=== PATIENT | female | born 1950 | race Caucasian/White ===

== ENCOUNTER → 2023-12-20 12:24 | Outpatient (REF) | payer MEDICARE, SELFPAY ==
[2023-12-21 12:48] LABS: Urine Albumin Trace (Neg - Trace); Urine Bilirubin Negative (Negative); Urine Character Clear (Clear); Urine Color Yellow; Urine Glucose Negative (Negative); Urine Ketone Negative (Negative); Urine Leukocyte 1+ (Negative); Urine Nitrite Positive (Negative); Urine Occult Blood Trace (Negative); Urine Urobilinogen Negative (Neg - 1+)
[2023-12-21 13:09] LABS: Urine Squamous Cell 0-2 /LPF (Few)
[2023-12-21 13:11] LABS: Urine White Cell 30-40 /HPF (0-5)
[2023-12-21 13:12] LABS: Urine Bacteria Many (Negative)
== END ==
LOC: OLABSOL 12:24
PROVIDERS: ATTENDING PHYSICIAN Hospitalist
DX: N39.0 Urinary tract infection, site not specified (principal)
CPT/HCPCS: 36415; 81003; 81015; 87077; 87086; 87186

== ENCOUNTER → 2024-01-07 12:55 | Outpatient (REF) | payer MEDICARE, SELFPAY ==
[2024-01-07 13:57] LABS: Urine Albumin Negative (Neg - Trace); Urine Bilirubin Negative (Negative); Urine Character Slightly Cloudy (Clear); Urine Color Yellow; Urine Glucose Negative (Negative); Urine Ketone Negative (Negative); Urine Leukocyte 2+ (Negative); Urine Nitrite Positive (Negative); Urine Occult Blood Negative (Negative); Urine Specific Gravity 1.015 (<1.030); Urine Urobilinogen Negative (Neg - 1+)
[2024-01-07 14:21] LABS: Urine Amorphous Seen; Urine Mucus Few
[2024-01-07 14:23] LABS: Urine Bacteria Many (Negative); Urine Red Blood Cell 0-2 /HPF (0-2); Urine White Cell 90-100 /HPF (0-5)
== END ==
LOC: OLABSOL 12:55
PROVIDERS: ATTENDING PHYSICIAN Hospitalist
DX: N39.0 Urinary tract infection, site not specified (principal)
CPT/HCPCS: 81003; 81015; 87077; 87086; 87186

== ENCOUNTER 2024-01-14 12:23 | Emergency (ER) | payer MEDICARE, SELFPAY ==
[2024-01-14 12:25] VITALS: BP 108/66
--- NOTE | 2024-01-14 14:15 | ED.GENMED ---
History of Present Illness
General
Chief Complaint: Fall
Source: patient
Exam Limitations: none
Time Seen by Provider: 01/14/24 12:44
Nursing documentation reviewed up to this point in time: agreed with
Travel History
Have you had any contact with someone who has COVID-19?: No
Do you have any symptoms of coronavirus? Fever > 100 degrees, chills, cough, shortness of breath, sore throat, loss of taste or smell, muscle aches, or headache?: No
History of Present Illness
History of Present Illness:
73-year-old female with past medical history of hypertension hyperlipidemia COPD anxiety depression presenting to the emergency department today when she leaned too far when she claims that she fell hit her forearm but denies hitting her head or
neck no discomfort other than her forearm she lives that the discomfort is very minimal to the right arm. Not on blood thinners.
Past History
Past History
ED Past Medical History: COPD, GERD, NIDDM and Other (neurogenic bladder)
ED Past Surgical History: Other
Social History
Tobacco: Smoker
Alcohol: None
Drug: None
Personal:
Living: alone
Employment: Employed
Family History
Family History: Other (No history of neurologic issues)
Review of Systems
Review of Systems
Allergies reviewed?: Yes
All Other Systems: ROS reviewed and negative except as documented in HPI and ROS
Phy Exam
Physical Exam
Physical Exam:
GENERAL: Alert , in no apparent distress
EYE: pupils equal and reactive
NECK: Supple, no significant adenopathy.
ENT: o/p clr, mmm.
CARDIAC: Regular rate and rhythm .
LUNGS: Clear breath sounds bilaterally, no acute respiratory distress, no wheezes/rales/rhonchi
ABDOMEN: Soft, without focal tenderness, no r/g, no cvat
NEUROLOGICAL: Alert and oriented, no focal neuro deficits
SKIN: Laceration to the right forearm on the posterior aspects 3 cm in length. This subcutaneous in depth warm and dry, skin intact.
MUSCULOSKELETAL: No edema, well perfused.
PSYCH: Normal and appropriate interaction.
Course
Vital Signs
Initial and Last Documented VS:
Initial Vital Signs
Temp Pulse Resp BP Pulse Ox
98.2 F 85 20 108/66 93
01/14/24 12:25 01/14/24 12:25 01/14/24 12:25 01/14/24 12:25 01/14/24 12:25
Last Documented Vital Signs
Temp Pulse Resp BP Pulse Ox
98.2 F 85 20 108/66 93
01/14/24 12:25 01/14/24 12:25 01/14/24 12:01/14/24 12:25 01/14/24 12:25
Procedures
Laceration Closure
Right Middle Posterior Distal Arm:
Status of Wound: clean
Size of Wound in cm: 3
Description of Wound Edges: sharp
Preparation: cleaned with saline
Anesthesia: 1% Lidocaine with epi
Revision/Debridement: routine- no revision and irrigate-direct pressure
Wound exploration: explored to base- no FB and no tendon involvement
Type of Closure: single layer closure
Skin Closure Material: 4-0 chromic gut
Number of sutures: 6
MDM/Problems Addressed
MDM/Problems Addressed:
73-year-old female presenting to the emergency department with a laceration to her right forearm after a fall did not sustain any additional injuries this was witnessed. Not on blood thinners. Area was cleaned thoroughly and sutured no bony
tenderness normal neurologic evaluation stable for discharge at this time she was offered a tetanus shot but refused. Return precautions given.
*Critical Care Note
Total Time (30-74mins, 75-104mins- exclusive of procedures): Not Applicable
ED Attending Note
-
Portions of this chart may have been created with voice recognition software.� Occasional wrong word or��sound alike� substitutions may have occurred due to the inherent limitations of voice recognition software.
Discharge Plan
Departure
Patient Disposition: Home (Routine Discharge)
Date of Disposition: 01/14/24
Time of Disposition: 14:18
Patient with high blood pressure during this ER visit?: No
Condition: Good
Covid-19: Not Applicable
Discharge Problem:
Forearm laceration
Instructions: Laceration Repair With Stitches (DC)
Prescriptions:
No Action
atorvastatin 80 mg Tablet
80 mg PO HS
repaglinide 2 mg Tablet
2 mg PO AC
sertraline 100 mg Tablet
150 mg PO HS
melatonin 3 mg Tablet
3 mg PO HS
potassium chloride 20 mEq Tablet,Er Particles/Crystals
20 meq PO DAILY
pantoprazole 40 mg Tablet,Delayed Release (Dr/Ec)
40 mg PO DAILY
ferrous sulfate 325 mg (65 mg iron) Tablet
325 mg PO DAILY
gabapentin 100 mg Capsule
400 mg PO TID
docusate sodium 100 mg Tablet
100 mg PO BID
lacosamide 50 mg Tablet
50 mg PO Q12H
magnesium oxide 400 mg magnesium Tablet
400 mg PO BID
quetiapine 25 mg Tablet
25 mg PO BID
repaglinide 0.5 mg Tablet
0.5 mg PO MUST ENTER TIMES
Rx Instructions:
every other day
ketoconazole 2 % Cream
1 applic TOPICAL BID
Januvia 100 mg Tablet
100 mg PO DAILY
acetaminophen [Pain Reliever ES(acetaminophn)] 500 mg tablet
1,000 mg PO TID@0700,1300,2000 PRN (Reason: pain)
Referrals:
NONE,* [Family Provider] -
Activity Restrictions/Additional Instructions:
You came to the emergency department today with concerns of a forearm laceration. Please keep the area clean covered. These are absorbable sutures. These should dissolve over the next 2 to 3 weeks. Please start putting ointment on the sutures to
help these dissolve 10 days. Return to the emergency department immediately for any signs of infection redness swelling warmth or any other new or concerning symptoms.
Interventions
Interventions:
*Risk Screen - Suicide Last Done: 01/14/24 12:25
*General Assessment Last Done: 01/14/24 12:25
*Neglect/Abuse Screening Last Done: 01/14/24 12:25
ED-Musculoskeletal Assessment Last Done: 01/14/24 13:21
ED- Neurological Assessment Last Done: 01/14/24 13:21
ED-Skin Assessment Last Done: 01/14/24 13:21
== END 2024-01-14 15:20 | disposition home or self-care (01) ==
LOC: EMR 12:23
PROVIDERS: EMERGENCY PHYSICIAN Emergency Medicine
DX: S51.811A Laceration without foreign body of right forearm, initial encounter (principal); W19.XXXA Unspecified fall, initial encounter; I10 Essential (primary) hypertension; E78.5 Hyperlipidemia, unspecified; J44.9 Chronic obstructive pulmonary disease, unspecified; F32.A Depression, unspecified; F41.9 Anxiety disorder, unspecified; F17.200 Nicotine dependence, unspecified, uncomplicated
CPT/HCPCS: 99282; 12002

== ENCOUNTER → 2024-02-16 09:30 | Outpatient (REF) | payer MEDICARE, SELFPAY ==
[2024-02-16 10:27] LABS: Hemoglobin 11.4 g/dL (12.0-16.0); Mean Corp Hgb Conc. 31.7 g/dL (33.0-37.0); Mean Corpuscular Hgb 27.8 pg (27.0-31.0); Mean Corpuscular Volume 87.8 fL (81.0-99.0); Mean Platelet Volume 11.2 fL (7.4-10.4); Platelet Count 203 10^3/uL (130-400); Red Cell Dist. Width 13.6 % (11.5-14.5); White Blood Cell Count 7.8 10^3/uL (4.8-10.8)
[2024-02-16 10:45] LABS: ALT (SGPT) 15 U/L (0-35); AST (SGOT) 19 U/L (14-36); Albumin 4.4 g/dl (3.5-5.0); Alkaline Phosphatase 111 U/L (38-126); Blood Urea Nitrogen 31 mg/dl (7-17); Calcium 9.6 mg/dl (8.4-10.2); Carbon Dioxide 24 mmol/L (22-30); Chloride 102 mmol/L (98-107); Glucose 121 mg/dl (70-99); Potassium 4.4 mmol/L (3.5-5.1); Sodium 140 mmol/L (135-145); Total Bilirubin 0.4 mg/dl (0.2-1.3); eGFR > 60.00
== END ==
LOC: OLABSOL 09:30
PROVIDERS: ATTENDING PHYSICIAN Nurse Practitioner Gerontology
DX: D64.9 Anemia, unspecified (principal); R94.4 Abnormal results of kidney function studies
CPT/HCPCS: 36415; 80053; 85027

== ENCOUNTER → 2024-04-12 10:25 | Outpatient (REF) | payer MEDICARE, SELFPAY ==
[2024-04-12 16:38] LABS: Urine Albumin Negative (Neg - Trace); Urine Bilirubin Negative (Negative); Urine Character Slightly Cloudy (Clear); Urine Color Yellow; Urine Glucose Negative (Negative); Urine Ketone Negative (Negative); Urine Leukocyte 1+ (Negative); Urine Nitrite Positive (Negative); Urine Occult Blood Negative (Negative); Urine Urobilinogen Negative (Neg - 1+)
[2024-04-12 17:03] LABS: Urine Bacteria Many (Negative); Urine Red Blood Cell 0-2 /HPF (0-2); Urine White Cell 50-60 /HPF (0-5)
== END ==
LOC: OLABSOL 10:25
PROVIDERS: ATTENDING PHYSICIAN Nurse Practitioner Gerontology
DX: N39.0 Urinary tract infection, site not specified (principal)
CPT/HCPCS: 81003; 81015; 87086

== ENCOUNTER → 2024-05-31 12:30 | Outpatient (REF) | payer MEDICARE, SELFPAY ==
[2024-05-31 12:50] LABS: Urine Albumin 1+ (Neg - Trace); Urine Bilirubin Negative (Negative); Urine Character Slightly Cloudy (Clear); Urine Color Yellow; Urine Glucose Negative (Negative); Urine Ketone Negative (Negative); Urine Leukocyte 2+ (Negative); Urine Nitrite Positive (Negative); Urine Occult Blood Trace (Negative); Urine Urobilinogen Negative (Neg - 1+); Urine pH 6.5 (5.0-9.0)
[2024-05-31 14:30] LABS: Urine Amorphous Seen
[2024-05-31 14:31] LABS: Urine Bacteria Many (Negative); Urine Red Blood Cell 0-2 /HPF (0-2); Urine White Cell 80-90 /HPF (0-5)
== END ==
LOC: OLABSOL 12:30
PROVIDERS: ATTENDING PHYSICIAN Hospitalist
DX: N39.0 Urinary tract infection, site not specified (principal)
CPT/HCPCS: 81003; 81015; 87086

== ENCOUNTER → 2024-06-27 11:00 | Outpatient (REF) | payer MEDICARE, SELFPAY ==
[2024-06-27 18:28] LABS: Urine Albumin Negative (Neg - Trace); Urine Bilirubin Negative (Negative); Urine Character Clear (Clear); Urine Color Yellow; Urine Glucose Negative (Negative); Urine Ketone Negative (Negative); Urine Leukocyte 2+ (Negative); Urine Nitrite Negative (Negative); Urine Occult Blood Trace (Negative); Urine Urobilinogen Negative (Neg - 1+)
[2024-06-27 18:46] LABS: Urine Bacteria Many (Negative); Urine Red Blood Cell 0-2 /HPF (0-2); Urine White Cell 21-25 /HPF (0-5)
== END ==
LOC: CLAB 11:00
PROVIDERS: ATTENDING PHYSICIAN Nurse Practitioner Gerontology
DX: N39.0 Urinary tract infection, site not specified (principal)
CPT/HCPCS: 36415; 81003; 81015; 87086

== ENCOUNTER → 2024-07-25 09:00 | Outpatient (REF) | payer MEDICARE, SELFPAY ==
[2024-07-26 12:31] LABS: Urine Albumin Negative (Neg - Trace); Urine Bilirubin Negative (Negative); Urine Character Slightly Cloudy (Clear); Urine Color Yellow; Urine Glucose Negative (Negative); Urine Ketone Negative (Negative); Urine Leukocyte 1+ (Negative); Urine Nitrite Negative (Negative); Urine Occult Blood Negative (Negative); Urine Specific Gravity 1.015 (<1.030); Urine Urobilinogen Negative (Neg - 1+)
[2024-07-26 12:53] LABS: Urine Bacteria Many (Negative); Urine Urothelial Cell 0-2 /LPF (FEW)
== END ==
LOC: OLABSOL 09:00
PROVIDERS: ATTENDING PHYSICIAN Hospitalist
DX: N39.0 Urinary tract infection, site not specified (principal)
CPT/HCPCS: 36415; 81003; 81015; 87086

== ENCOUNTER → 2024-09-05 09:25 | Outpatient (REF) | payer MEDICARE, SELFPAY ==
[2024-09-06 14:36] LABS: Urine Albumin Trace (Neg - Trace); Urine Bilirubin Negative (Negative); Urine Character Slightly Cloudy (Clear); Urine Color Yellow; Urine Glucose Negative (Negative); Urine Ketone Negative (Negative); Urine Leukocyte 1+ (Negative); Urine Nitrite Positive (Negative); Urine Occult Blood 2+ (Negative); Urine Urobilinogen Negative (Neg - 1+)
[2024-09-06 14:37] LABS: Urine Bacteria Many (Negative); Urine White Cell 26-30 /HPF (0-5)
== END ==
LOC: OLABSOL 09:25
PROVIDERS: ATTENDING PHYSICIAN Hospitalist
DX: N39.0 Urinary tract infection, site not specified (principal)
CPT/HCPCS: 81003; 81015; 87086

== ENCOUNTER → 2024-09-25 11:00 | Outpatient (REF) | payer MEDICARE, SELFPAY ==
[2024-09-25 17:00] LABS: Urine Albumin Trace (Neg - Trace); Urine Bilirubin Negative (Negative); Urine Character Slightly Cloudy (Clear); Urine Color Yellow; Urine Glucose Negative (Negative); Urine Ketone Negative (Negative); Urine Leukocyte 1+ (Negative); Urine Nitrite Negative (Negative); Urine Occult Blood 1+ (Negative); Urine Urobilinogen Negative (Neg - 1+)
[2024-09-25 17:30] LABS: Urine Squamous Cell 0-2 /LPF (Few)
[2024-09-25 17:31] LABS: Urine Bacteria Many (Negative); Urine White Cell 21-25 /HPF (0-5)
== END ==
LOC: OLABSOL 11:00
DX: N39.0 Urinary tract infection, site not specified (principal)
CPT/HCPCS: 81003; 81015; 87086

== ENCOUNTER 2024-12-26 14:57 | Emergency (ER) | payer MEDICARE, SELFPAY ==
[2024-12-26 15:02] VITALS: BP 122/68
--- NOTE | 2024-12-26 17:12 | ED.GENMED ---
History of Present Illness
General
Chief Complaint: Fall
Time Seen by Provider: 12/26/24 17:09
History of Present Illness
History of Present Illness:
74-year-old female presents to the emergency department via EMS from [facility] after a fall, she was apparently walking to warn her elevating after getting her hair done and she fell. On arrival she has no complaints. Specifically
denies headache or neck pain. She is uncertain if there was a loss of consciousness.
Past History
Past History
ED Past Medical History: COPD, GERD, NIDDM and Other (neurogenic bladder)
ED Past Surgical History: Other
Social History
Tobacco: Smoker
Alcohol: None
Drug: None
Personal:
Living: alone
Employment: Employed
Family History
Family History: Other (No history of neurologic issues)
Review of Systems
Review of Systems
Allergies reviewed?: Yes
All Other Systems: ROS reviewed and negative except as documented in HPI and ROS
Phy Exam
Physical Exam
Physical Exam:
GEN: Well appearing, NAD, WDWN
HEENT: Normocephalic and atraumatic, no cephalohematoma, no midline cervical spine tenderness,Oral mucosa moist, no scleral icterus, no nasal congestion
Cardiac: Regular rate
Lung: No respiratory distress, no tachypnea
MSK: No gross deformity or injuries
Skin: Good color, no pallor or jaundice, no rashes
Neuro: AO x2; CN II-XII grossly intact. BUE strength 5/5 in all grier, sensation intact and symmetric. BLE strength 5/5 in all grier, sensation intact and symmetric
Psych: Calm, cooperative
Course
Orders/Labs/Results
Orders:
Orders
12/26/24 15:06
CT Cervical Spine W/o Iv Contr Urgent
Comment:
Reason For Exam: fall
CT Head W/o Iv Contrast Urgent
Comment:
Reason For Exam: fall
Vital Signs
Initial and Last Documented VS:
Initial Vital Signs
Temp Pulse Resp BP Pulse Ox
98.4 F 82 16 122/68 95
12/26/24 15:02 12/26/24 15:02 12/26/24 15:02 12/26/24 15:02 12/26/24 15:02
Last Documented Vital Signs
Temp Pulse Resp BP Pulse Ox
98.4 F 82 16 122/68 95
12/26/24 15:02 12/26/24 15:02 12/26/24 15:02 12/26/24 15:02 12/26/24 15:02
MDM/Problems Addressed
MDM/Problems Addressed:
Imaging reassuring, patient remains pain-free on reassessment. Discharged in stable condition to the care of family
*Critical Care Note
Total Time (30-74mins, 75-104mins- exclusive of procedures): Not Applicable
ED Attending Note
-
Portions of this chart may have been created with voice recognition software.� Occasional wrong word or��sound alike� substitutions may have occurred due to the inherent limitations of voice recognition software.
Discharge Plan
Departure
Patient Disposition: Home (Routine Discharge)
Date of Disposition: 12/26/24
Time of Disposition: 17:12
Patient with high blood pressure during this ER visit?: No
Discharge Problem:
Fall
Instructions: Preventing falls in adults
Prescriptions:
No Action
atorvastatin 80 mg Tablet
80 mg PO HS
repaglinide 2 mg Tablet
2 mg PO AC
sertraline 100 mg Tablet
150 mg PO HS
melatonin 3 mg Tablet
3 mg PO HS
potassium chloride 20 mEq Tablet,Er Particles/Crystals
20 meq PO DAILY
pantoprazole 40 mg Tablet,Delayed Release (Dr/Ec)
40 mg PO DAILY
ferrous sulfate 325 mg (65 mg iron) Tablet
325 mg PO DAILY
gabapentin 100 mg Capsule
400 mg PO TID
docusate sodium 100 mg Tablet
100 mg PO BID
lacosamide 50 mg Tablet
50 mg PO Q12H
magnesium oxide 400 mg magnesium Tablet
400 mg PO BID
quetiapine 25 mg Tablet
25 mg PO BID
repaglinide 0.5 mg Tablet
0.5 mg PO MUST ENTER TIMES
Rx Instructions:
every other day
ketoconazole 2 % Cream
1 applic TOPICAL BID
Januvia 100 mg Tablet
100 mg PO DAILY
acetaminophen [Pain Reliever ES(acetaminophn)] 500 mg tablet
1,000 mg PO TID@0700,1300,2000 PRN (Reason: pain)
Interventions
Interventions:
*Risk Screen - Suicide Last Done: 12/26/24 15:02
*General Assessment Last Done: 12/26/24 15:02
*Neglect/Abuse Screening Last Done: 12/26/24 15:02
*ED COVID-19 Vaccine History Last Done: 12/26/24 15:02
*Nursing Disposition Last Done: 12/26/24 17:30
Discharge Date and Time
Discharge Date/Time: 12/26/24 17:30
Print Language: PASHTO
== END 2024-12-26 17:30 | disposition home or self-care (01) ==
LOC: EMR 14:57
PROVIDERS: EMERGENCY PHYSICIAN Emergency Medicine; FAMILY PHYSICIAN Hospitalist
DX: Z04.3 Encounter for examination and observation following other accident (principal); W19.XXXA Unspecified fall, initial encounter; J44.9 Chronic obstructive pulmonary disease, unspecified; K21.9 Gastro-esophageal reflux disease without esophagitis; E11.9 Type 2 diabetes mellitus without complications; F17.200 Nicotine dependence, unspecified, uncomplicated
CPT/HCPCS: 99284; 70450; 72125

== ENCOUNTER → 2025-02-20 11:30 | Outpatient (REF) | payer MEDICARE, SELFPAY ==
[2025-02-20 18:37] LABS: Urine Albumin Negative (Neg - Trace); Urine Bilirubin Negative (Negative); Urine Character Cloudy (Clear); Urine Color Yellow; Urine Glucose Negative (Negative); Urine Ketone Negative (Negative); Urine Leukocyte 1+ (Negative); Urine Nitrite Negative (Negative); Urine Occult Blood Negative (Negative); Urine Urobilinogen Negative (Neg - 1+)
[2025-02-20 19:32] LABS: Urine Bacteria Many (Negative); Urine Red Blood Cell 0-2 /HPF (0-2); Urine White Cell 21-25 /HPF (0-5)
== END ==
LOC: OLABSOL 11:30
PROVIDERS: ATTENDING PHYSICIAN Hospitalist
DX: N39.0 Urinary tract infection, site not specified (principal)
CPT/HCPCS: 81003; 81015; 87086

== ENCOUNTER → 2025-03-09 11:48 | Outpatient (REF) | payer MEDICARE, SELFPAY ==
[2025-03-09 12:38] LABS: % Basophils 0.4 % (0-2); % Eosinophils 1.6 % (0-6); % Immature Granulocytes 0.3 % (0-0.5); % Lymphocytes 29.8 % (20.5-51.1); % Monocytes 4.8 % (1.7-9.3); % Neutrophils 63.1 % (42.2-75.2); Absolute Eosinophils 0.1 10^3/uL (0-0.7); Absolute Lymphocytes 2.1 10^3/uL (1.2-3.4); Absolute Monocytes 0.3 10^3/uL (0.1-0.6); Absolute Neutrophils 4.5 10^3/uL (1.4-6.5); Hematocrit 38.3 % (37.0-47.0); Hemoglobin 12.3 g/dL (12.0-16.0); Mean Corp Hgb Conc. 32.1 g/dL (33.0-37.0); Mean Corpuscular Hgb 28.7 pg (27.0-31.0); Mean Corpuscular Volume 89.3 fL (81.0-99.0); Mean Platelet Volume 11.8 fL (7.4-10.4); Nucleated Red Blood Cells % 0 %; Platelet Count 191 10^3/uL (130-400); Red Blood Cell Count 4.29 10^6/uL (4.20-5.40); Red Cell Dist. Width 13.2 % (11.5-14.5); White Blood Cell Count 7.1 10^3/uL (4.8-10.8)
[2025-03-09 12:55] LABS: ALT (SGPT) 26 U/L (0-35); AST (SGOT) 22 U/L (14-36); Albumin 4.6 g/dl (3.5-5.0); Alkaline Phosphatase 102 U/L (38-126); Blood Urea Nitrogen 18 mg/dl (7-17); Calcium 9.2 mg/dl (8.4-10.2); Carbon Dioxide 26 mmol/L (22-30); Chloride 104 mmol/L (98-107); Glucose 126 mg/dl (70-99); HDL Cholesterol 36 mg/dl; LDL Cholesterol, Calculated 83 mg/dl; Phosphorus 3.9 mg/dl (2.5-4.5); Potassium 4.6 mmol/L (3.5-5.1); Sodium 144 mmol/L (135-145); Total Bilirubin 0.5 mg/dl (0.2-1.3); Total Cholesterol 160 mg/dl (50-199); Triglyceride 208 mg/dl (10-149); Very Low Density Lipoprotein 41 mg/dl (0-30); eGFR > 60.00
[2025-03-09 13:04] LABS: Vitamin D, 25-OH*** 21.3 ng/mL (30-80)
[2025-03-09 13:17] LABS: TSH 1.05 uIU/ml (0.47-4.68)
[2025-03-09 13:22] LABS: Glycohemoglobin (HgbA1c) 6.5 % (4.0-5.6)
[2025-03-09 13:36] LABS: Vitamin B12 299 pg/ml (239-931)
== END ==
LOC: OLABSOL 11:48
DX: E55.9 Vitamin D deficiency, unspecified (principal); D51.9 Vitamin B12 deficiency anemia, unspecified; E78.5 Hyperlipidemia, unspecified; D64.9 Anemia, unspecified; E03.9 Hypothyroidism, unspecified; E11.9 Type 2 diabetes mellitus without complications
CPT/HCPCS: 36415; 80053; 80061; 82306; 82607; 83036; 83735; 84100; 84443; 85025

== ENCOUNTER 2025-04-20 12:12 | Emergency (ER) | payer MEDICARE, SELFPAY ==
[2025-04-20] VITALS (8 sets, daily range): BP systolic 106–134; BP diastolic 60–76; BMI 33.0
--- NOTE | 2025-04-20 13:04 | ED.GENMED ---
History of Present Illness
General
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
Source: patient
Exam Limitations: none
Time Seen by Provider: 04/20/25 12:57
Nursing documentation reviewed up to this point in time: agreed with
History of Present Illness
History of Present Illness:
75-year-old female history of COPD, PE, not anticoagulated, HLD, HTN, GERD, neurogenic bladder with chronic Perrin catheter, IDDM, anxiety/depression presents from [facility] stating her Perrin catheter has not drained since last night after VN changed
her catheter. She denies abdominal pain, distension. Denies f/c/n/v/c/d. She states she has been eating and drinking well.
Past History
Past History
ED Past Medical History: COPD, GERD, HTN, Hypercholesterolemia, NIDDM, Psychiatric (anxiety/depression) and Other (neurogenic bladder, chronic urinalry catheter)
ED Past Surgical History: Other
Social History
Tobacco: Smoker
Alcohol: None
Drug: None
Personal:
Living: alone
Employment: Employed
Family History
Family History: Other (No history of neurologic issues)
Review of Systems
Review of Systems
Allergies reviewed?: Yes
All Other Systems: ROS reviewed and negative except as documented in HPI and ROS
Constitutional: Denies fever or chills
Respiratory: Denies trouble breathing
Cardiac: Denies chest pain
ABD/GI: Denies abdominal pain, nausea, vomiting, diarrhea or anorexia
: Reports other (chronic urine catheter, changed last p.m., has had no drainage since. )
Musculoskeletal: Denies edema
Skin: Reports no symptoms
Neurological: Reports no symptoms
Phy Exam
Physical Exam
Physical Exam:
GENERAL: No acute distress. A&Ox3.
CONSTITUTIONAL: Afebrile.
EYES: clear, conjunctivae normal
ENMT: dry mucus membranes, Pharynx nl
RESPIRATORY: Regular respirations, nonlabored, lungs clear.
CARDIOVASCULAR: Regular rate and rhythm, no murmurs, no rubs.
GI: Soft, nontender, nondistended, normal BS
: Perrin catheter in place, small amount urine with sediment noted in proximal tube. Bladder scan: 164 ml
MUSCULOSKELETAL: Moves with ease. Well perfused. No edema.
SKIN: Warm, dry, pink. Mild candidal rash pannus.
PSYCH: Normal mood and affect. Well kept, interactive and appropriate
NEUROLOGIC: Awake, alert and oriented. No focal neurological deficits nondistended.
Course
Orders/Labs/Results
Orders:
Orders
04/20/25 13:33
0.9% Sodium Chloride 1000 ml [Nss] 1,000 ml IV BOLUS
04/20/25 13:46
Complete Blood Count/With Diff Urgent
Comprehensive Metabolic Panel Urgent
04/20/25 14:16
Urinalysis Reflex To Culture Urgent
Date Specimen was Collected: 04/20/25
Time Specimen was Collected: 14:14
Urine Microscopic Reflex Cult Urgent
Urine Culture Urgent
GEREMIAS Source: U
Specimen Description:
Date Specimen was Collected: 04/20/25
Time Specimen was Collected: 14:14
Abnormal Lab Results
04/20/25 04/20/25
13:46 14:16
RBC 4.11 L 10^6/uL
(4.20-5.40)
Hct 35.4 L %
(37.0-47.0)
MPV 11.0 H fL
(7.4-10.4)
Absolute Neuts (auto) 6.8 H 10^3/uL
(1.4-6.5)
Neutrophils % 78.2 H %
(42.2-75.2)
Lymphocytes % 16.5 L %
(20.5-51.1)
Chloride 108 H mmol/L
(98-107)
BUN 19 H mg/dl
(7-17)
Glucose 161 H mg/dl
(70-99)
Ur Occult Blood Reflex 4+ A
(Negative)
Leukocyte Esterase Rfl 3+ A
(Negative)
Urine RBC 3-6 A /HPF
(0-2)
Urine WBC (Reflex) 70-80 A /HPF
(0-5)
Urine Bacteria (Reflex) Moderate A
(Negative)
Urine Albumin (Reflex) 4+ A
(Neg - Trace)
04/20/25 13:46
04/20/25 13:46
Vital Signs
Initial and Last Documented VS:
Initial Vital Signs
Temp Pulse Resp BP Pulse Ox
98 F 76 16 106/61 95
04/20/25 12:21 04/20/25 12:21 04/20/25 12:21 04/20/25 12:21 04/20/25 12:21
Last Documented Vital Signs
Temp Pulse Resp BP Pulse Ox
97.4 F 70 20 134/70 97
04/20/25 16:37 04/20/25 16:37 04/20/25 16:37 04/20/25 16:37 04/20/25 16:37
MDM/Problems Addressed
Differential Diagnosis Includes:
clogged catheter, misplaced catheter, UTI
MDM/Problems Addressed:
75-year-old female history of COPD, PE, not anticoagulated, HLD, HTN, GERD, neurogenic bladder with chronic Perrin catheter, IDDM, anxiety/depression presents from [facility] stating her Perrin catheter has not drained since last night after VN changed
her catheter. She denies abdominal pain, distension. Denies f/c/n/v/c/d. She states she has been eating and drinking well.
Afebrile, NAD
2:30 p.m.
CBC, CMP with no clinically significant abnormality UA: WBC 70-80
4+ occult blood 3+ leukocyte esterase negative nitrites moderate bacteria, patient is asymptomatic, will hold off on treating pending urine culture results
Results discussed with pt and daughter. They request a change in the catheter. Will use 18 instead of 16 since there was so much sediment and could be causing a blockage.
After 1 L IVFs, pt drank about 500 mls, new catheter placed and drained >1000 mls.
Rx for Nystatin cream sent to her pharmacy for the candidal pannus rash
*Pulse Oximetry
SaO2: 95
Oxygen Mode of Delivery: Room air
*Critical Care Note
Total Time (30-74mins, 75-104mins- exclusive of procedures): Not Applicable
ED Attending Note
-
Portions of this chart may have been created with voice recognition software.� Occasional wrong word or��sound alike� substitutions may have occurred due to the inherent limitations of voice recognition software.
Discharge Plan
Departure
Patient Disposition: Home (Routine Discharge)
Date of Disposition: 04/20/25
Time of Disposition: 16:17
Patient with high blood pressure during this ER visit?: No
Condition: Good
Discharge Problem:
Problem with Perrin catheter
Instructions: How to care for a urinary catheter
Prescriptions:
New
nystatin 100,000 unit/gram cream
1 applic topical BID Qty: 30 0RF
No Action
atorvastatin 80 mg Tablet
80 mg PO HS
repaglinide 2 mg Tablet
2 mg PO AC
sertraline 100 mg Tablet
150 mg PO HS
melatonin 3 mg Tablet
3 mg PO HS
potassium chloride 20 mEq Tablet,Er Particles/Crystals
20 meq PO DAILY
pantoprazole 40 mg Tablet,Delayed Release (Dr/Ec)
40 mg PO DAILY
ferrous sulfate 325 mg (65 mg iron) Tablet
325 mg PO DAILY
gabapentin 100 mg Capsule
400 mg PO TID
docusate sodium 100 mg Tablet
100 mg PO BID
lacosamide 50 mg Tablet
50 mg PO Q12H
magnesium oxide 400 mg magnesium Tablet
400 mg PO BID
quetiapine 25 mg Tablet
25 mg PO BID
repaglinide 0.5 mg Tablet
0.5 mg PO MUST ENTER TIMES
Rx Instructions:
every other day
ketoconazole 2 % Cream
1 applic TOPICAL BID
Januvia 100 mg Tablet
100 mg PO DAILY
acetaminophen [Pain Reliever ES(acetaminophn)] 500 mg tablet
1,000 mg PO TID@0700,1300,2000 PRN (Reason: pain)
Referrals:
Johana Paz, DO [Family Provider, General]
Activity Restrictions/Additional Instructions:
As we discussed, you have a #18 Fr. perrin catheter, yours was most likely blocked with some sediment so larger one was used.
Interventions
Interventions:
*Risk Screen - Suicide Last Done: 04/20/25 12:21
*General Assessment Last Done: 04/20/25 16:37
*Neglect/Abuse Screening Last Done: 04/20/25 12:21
*ED- Fall Risk Assessment Last Done: 04/20/25 12:43
*ED COVID-19 Vaccine History Last Done: 04/20/25 12:43
*Nursing Disposition Last Done: 04/20/25 16:37
ED-Female Genitourinary Assessment Last Done: 04/20/25 14:21
Discharge Date and Time
Discharge Date/Time: 04/20/25 16:38
Print Language: ICELANDIC
[2025-04-20] MEDS: NSS 1000 IV (13:47)
[2025-04-20 13:56] LABS: % Basophils 0.3 % (0-2); % Eosinophils 0.6 % (0-6); % Immature Granulocytes 0.3 % (0-0.5); % Lymphocytes 16.5 % (20.5-51.1); % Monocytes 4.1 % (1.7-9.3); % Neutrophils 78.2 % (42.2-75.2); Absolute Eosinophils 0.1 10^3/uL (0-0.7); Absolute Lymphocytes 1.4 10^3/uL (1.2-3.4); Absolute Monocytes 0.4 10^3/uL (0.1-0.6); Absolute Neutrophils 6.8 10^3/uL (1.4-6.5); Hematocrit 35.4 % (37.0-47.0); Mean Corp Hgb Conc. 33.9 g/dL (33.0-37.0); Mean Corpuscular Hgb 29.2 pg (27.0-31.0); Mean Corpuscular Volume 86.1 fL (81.0-99.0); Nucleated Red Blood Cells % 0 %; Platelet Count 197 10^3/uL (130-400); Red Blood Cell Count 4.11 10^6/uL (4.20-5.40); Red Cell Dist. Width 13.1 % (11.5-14.5); White Blood Cell Count 8.7 10^3/uL (4.8-10.8)
[2025-04-20 14:19] LABS: ALT (SGPT) 22 U/L (0-35); AST (SGOT) 18 U/L (14-36); Albumin 4.3 g/dl (3.5-5.0); Alkaline Phosphatase 99 U/L (38-126); Blood Urea Nitrogen 19 mg/dl (7-17); Calcium 9.5 mg/dl (8.4-10.2); Carbon Dioxide 26 mmol/L (22-30); Chloride 108 mmol/L (98-107); Estimated Creatinine Clearance 57 ml/min; Glucose 161 mg/dl (70-99); Potassium 4.3 mmol/L (3.5-5.1); Sodium 141 mmol/L (135-145); Total Bilirubin 0.5 mg/dl (0.2-1.3); Total Protein 6.8 g/dl (6.3-8.2); eGFR > 60.00
[2025-04-20 14:24] LABS: Urine Albumin 4+ (Neg - Trace); Urine Bilirubin Negative (Negative); Urine Character Cloudy (Clear); Urine Color Yellow; Urine Glucose Negative (Negative); Urine Ketone Negative (Negative); Urine Leukocyte 3+ (Negative); Urine Nitrite Negative (Negative); Urine Occult Blood 4+ (Negative); Urine Specific Gravity 1.005 (<1.030); Urine Urobilinogen Negative (Neg - 1+)
[2025-04-20 14:33] LABS: Urine Bacteria Moderate (Negative); Urine Squamous Cell 0-2 /LPF (Few); Urine White Cell 70-80 /HPF (0-5)
== END 2025-04-20 16:38 | disposition home or self-care (01) ==
LOC: EMR 12:12
PROVIDERS: Registered Nurse; EMERGENCY PHYSICIAN Emergency Medicine; FAMILY PHYSICIAN Hospitalist
DX: T83.018A Breakdown (mechanical) of other urinary catheter, initial encounter (principal); Y73.1 Therapeutic (nonsurgical) and rehabilitative gastroenterology and urology devices associated with adverse incidents; B37.2 Candidiasis of skin and nail; I10 Essential (primary) hypertension; E11.9 Type 2 diabetes mellitus without complications; E78.00 Pure hypercholesterolemia, unspecified; F17.200 Nicotine dependence, unspecified, uncomplicated; F32.A Depression, unspecified; F41.9 Anxiety disorder, unspecified; J44.9 Chronic obstructive pulmonary disease, unspecified
CPT/HCPCS: 99284; 96360; 51798; 51702; 80053; 81003; 81015; 85025; 87086

== ENCOUNTER → 2025-08-02 16:36 | Outpatient (REF) | payer MEDICARE, SELFPAY ==
[2025-08-03 18:59] LABS: Urine Character Cloudy (Clear)
[2025-08-03 20:53] LABS: Urine Red Blood Cell 16-20 /HPF (0-2); Urine White Cell 80-90 /HPF (0-5)
== END ==
LOC: OLABSOL 16:36
PROVIDERS: ATTENDING PHYSICIAN Hospitalist
DX: R31.0 Gross hematuria (principal)
CPT/HCPCS: 81003; 81015; 87077; 87086; 87186